=== PATIENT | female | born 1975 | race Caucasian/White ===

== ENCOUNTER 2018-02-23 03:22 | Emergency (ER) | payer OTHER ==
[2018-02-23] MEDS ORDERED: ONDANSETRON 4 MG/2 ML VIAL ONE (03:27)
[2018-02-23] MEDS ORDERED: NS 1,000 ML IV ONE ×2 (03:44→03:54)
[2018-02-23] MEDS ORDERED: DEXAMETHASONE 10 MG/ML VIAL IVP ONE (03:44)
[2018-02-23] MEDS ORDERED: KETOROLAC 30 MG/1 ML SDV IVP ONE (03:44)
[2018-02-23] MEDS ORDERED: METOCLOPRAMIDE 10 MG/2 ML VIAL IVP ONE (03:44)
--- NOTE | 2018-02-23 03:47 | EDPHY ---
H & P Stated Complaint: VOMITING X24 HRS- NOW STOPPED, NOW HEADACHE, BODY ACHES Time Seen by Provider: 02/23/18 03:47 HPI/ROS: HPI CHIEF COMPLAINT: Headache, vomiting HISTORY OF PRESENT ILLNESS: Very pleasant 42-year-old female, history of migraine headaches however has not had 1 in over a year, she presents emergency room with a left-sided throbbing pulsating headache mainly behind her left eye. She states this started 24 hr ago. Around 4:00 a.m. Yesterday she woke up vomiting with a left-sided headache. She states she took very easy yesterday as she did not feel well had a throbbing left-sided headache most of the day with associated nausea vomiting. She also reports that the pain sometimes radiates up from the left neck posterior left occiput down left-sided for head to the left front region. She does have photophobia and phonophobia. No double vision. No focal numbness or tingling no focal weakness. No stiff neck. No fever. No recent trauma. Denies chest pain or shortness of breath. States this feels very similar previous migraines however is not had 1 for over a year. Typically when she did have a history of migraine she got a left-sided throbbing headache. She took Tylenol but without much relief. She woke up again tonight with ongoing headache. So she had nausea. Past Medical History: Migraine headaches Past Surgical History: No recent surgery Social History: Denies daily use of drugs alcohol tobacco. Family History: Noncontributory ROS REVIEW OF SYSTEMS: A comprehensive 10 point review of systems is otherwise negative aside from elements mentioned in the history of present illness. Exam Constitutional appears well nontoxic, triage nursing summary reviewed, vital signs reviewed, awake/alert. Eyes normal conjunctivae and sclera, EOMI, PERRLA. HENT normal inspection, atraumatic, moist mucus membranes, no epistaxis, neck supple/ no meningismus, no raccoon eyes. No meningeal signs. No midline cervical spine pain. Respiratory clear to auscultation bilaterally, normal breath sounds, no respiratory distress, no wheezing. Cardiovascular rate normal, regular rhythm, no murmur, no edema, distal pulses normal. Gastrointestinal soft, non-tender, no rebound, no guarding, normal bowel sounds, no distension, no pulsatile mass. Genitourinary no CVA tenderness. Musculoskeletal no midline vertebral tenderness, full range of motion, no calf swelling, no tenderness of extremities, no meningismus, good pulses, neurovascularly intact. Skin pink, warm, & dry, no rash, skin atraumatic. Neurologic nonfocal neurological exam, awake, alert and oriented x 3, AAOx3, moves all 4 extremities equally, motor intact, sensory intact, CN II-XII intact , normal cerebellar, normal vision, normal speech. Psychiatric normal mood/affect. Heme/Lymph/Immune no lymphadenopathy. Differential Diagnosis: Includes but is not limited to in a particular order tension headache, cluster headache, migraine headache, intracranial bleed, doubt meningitis Medical Decision Making: Plan for this patient IV establishment with IV fluid bolus, migraine cocktail including Toradol, Decadron, Reglan, Benadryl. Check basic blood work, urinalysis, CT scan head without contrast that she has not had a recent headache in over a year. And will re-evaluate. Re-evaluation: CT scan head without contrast: Shows hyperdense lesion along the posterior inferior aspect of the right 4th ventricle and cerebellum. Possibly artifact. Called to me by Dr. Acosta. Recommend MRI. Discussed this with the patient. Will proceed with MRI to rule out bleed or infarct. Brain MRI without contrast due to previous area of hyperdensity on the CT this shows that this areas artifact. No acute bleed. Called to me by Dr. Acosta. 0524: Patient re-evaluated resting comfortably no acute distress. She feels much better after migraine cocktail. Blood work reassuring. Feels much better. Headache is greatly improved. Normal neurological exam. Discussed return precautions with her she understands return emergency room if develops worsening headache, fever, vomiting. Fioricet prescription provided. Patient should follow up with her primary care doctor. Source: Patient - Personal History LMP (Females 10-55): 1-7 Days Ago Current Tetanus/Diphtheria Vaccine: Yes - Medical/Surgical History Hx Asthma: No Hx Chronic Respiratory Disease: No Hx Diabetes: No Hx Cardiac Disease: No Hx Renal Disease: No Hx Cirrhosis: No Hx Alcoholism: No Hx HIV/AIDS: No Hx Splenectomy or Spleen Trauma: No Other PMH: JAW SURGERY, MIGRAINES - Social History Smoking Status: Never smoked Constitutional: Initial Vital Signs Temperature (C) 36.5 C 02/23/18 03:32 Heart Rate 62 02/23/18 03:32 Respiratory Rate 18 02/23/18 03:32 Blood Pressure 123/79 H 02/23/18 03:32 O2 Sat (%) 94 02/23/18 03:32 O2 Delivery Mode Room Air Allergies/Adverse Reactions: No Known Allergies Allergy (Unverified 03/16/12 20:14) Home Medications: Medication Instructions Recorded Miscellaneous Medical Supply [NO 1 ea MISC AD 03/16/12 HOME MEDS] Acet/Caffeine/Buta Fioricet 1 each PO Q6 #20 tab 02/23/18 [Fioricet] Medical Decision Making - Data Points Laboratory Results: Laboratory Results 02/23/18 03:45 02/23/18 03:45 02/23/18 02/23/18 02/23/18 03:45 03:45 03:45 WBC 7.60 10^3/uL 10^3/uL (3.80-9.50) RBC 4.60 10^6/uL 10^6/uL (4.18-5.33) Hgb 14.8 g/dL g/dL (12.6-16.3) Hct 42.9 % % (38.0-47.0) MCV 93.3 fL fL (81.5-99.8) MCH 32.2 pg pg (27.9-34.1) MCHC 34.5 g/dL g/dL (32.4-36.7) RDW 12.2 % % (11.5-15.2) Plt Count 290 10^3/uL 10^3/uL (150-400) MPV 9.3 fL fL (8.7-11.7) Neut % (Auto) 43.7 % % (39.3-74.2) Lymph % (Auto) 47.1 % H % (15.0-45.0) [place] % (Auto) 5.3 % % (4.5-13.0) Eos % (Auto) 3.0 % % (0.6-7.6) Baso % (Auto) 0.8 % % (0.3-1.7) Nucleat RBC Rel Count 0.0 % % (0.0-0.2) Absolute Neuts (auto) 3.32 10^3/uL 10^3/uL (1.70-6.50) Absolute Lymphs (auto) 3.58 10^3/uL H 10^3/uL (1.00-3.00) Absolute Monos (auto) 0.40 10^3/uL 10^3/uL (0.30-0.80) Absolute Eos (auto) 0.23 10^3/uL 10^3/uL (0.03-0.40) Absolute Basos (auto) 0.06 10^3/uL 10^3/uL (0.02-0.10) Absolute Nucleated RBC 0.00 10^3/uL 10^3/uL (0-0.01) Immature Gran % 0.1 % % (0.0-1.1) Immature Gran # 0.01 10^3/uL 10^3/uL (0.00-0.10) Sodium 137 mEq/L mEq/L (135-145) Potassium 4.0 mEq/L mEq/L (3.3-5.0) Chloride 105 mEq/L mEq/L (97-110) Carbon Dioxide 25 mEq/l mEq/l (22-31) Anion Gap 7 mEq/L L mEq/L (8-16) BUN 13 mg/dL mg/dL (7-23) Creatinine 0.8 mg/dL mg/dL (0.6-1.0) Estimated GFR > 60 Glucose 90 mg/dL mg/dL (70-100) Calcium 9.3 mg/dL mg/dL (8.5-10.4) Beta HCG, Qual NEGATIVE Medications Given: Discontinued Medications Dexamethasone (Decadron Injection) 10 mg IVP EDNOW ONE Stop: 02/23/18 03:45 Last Admin: 02/23/18 03:49 Dose: 10 mg Diphenhydramine HCl (Benadryl Injection) 50 mg IVP EDNOW ONE Stop: 02/23/18 03:45 Last Admin: 02/23/18 03:49 Dose: 50 mg Sodium Chloride (Ns) 1,000 mls @ 0 mls/hr IV ONCE ONE; Wide Open PRN Reason: Protocol Stop: 02/23/18 03:45 Last Admin: 02/23/18 03:50 Dose: 1,000 mls Sodium Chloride (Ns) 1,000 mls @ 0 mls/hr IV ONCE ONE PRN Reason: Wide Open Stop: 02/23/18 03:55 Last Admin: 02/23/18 04:11 Dose: 1,000 mls Ketorolac Tromethamine (Toradol) 30 mg IVP EDNOW ONE Stop: 02/23/18 03:45 Last Admin: 02/23/18 03:49 Dose: 30 mg Metoclopramide HCl (Reglan Injection) 10 mg IVP EDNOW ONE Stop: 02/23/18 03:45 Last Admin: 02/23/18 03:50 Dose: 10 mg Departure - Departure Disposition: Home, Routine, Self-Care Clinical Impression: Headache Qualifiers: Headache type: unspecified Headache chronicity pattern: acute headache Intractability: not intractable Qualified Code(s): R51 - Headache Condition: Good Instructions: Acute Headache (ED) Additional Instructions: 1. Follow up with your primary care doctor 2. Return to the emergency room if you have worsening symptoms includes worsening headache, fever, vomiting. Referrals: Earlene Gomez MD [Primary Care Provider] - As per Instructions Prescriptions: Acet/Caffeine/Buta Fioricet [Fioricet] 1 each PO Q6 #20 tab
[2018-02-23 03:53] LABS: PLATELET COUNT 290 10^3/uL (150-400)
[2018-02-23 04:20] VITALS: BP 128/81
== END 2018-02-23 05:38 | disposition home or self-care (01) ==
DX: R51 Headache (principal); E86.9 Volume depletion, unspecified
CPT/HCPCS: 96374; J1100; J1200; J1885; J2405; J2765